=== PATIENT | male | born 1990 | race Caucasian/White ===

== ENCOUNTER 2016-12-24 14:38 | Emergency (ER) | payer SELFPAY ==
[2016-12-24] MEDS ORDERED: ASPIRIN 325 MG TABLET PO ONE (15:03)
--- NOTE | 2016-12-24 15:09 | ER Document Report ---
ED Medical Screen (RME) - General Chief Complaint: Chest Pain Stated Complaint: CHEST PAIN Time Seen by Provider: 12/24/16 15:03 Mode of Arrival: Ambulatory Information source: Patient TRAVEL OUTSIDE OF THE [place] IN LAST 30 DAYS: No - HPI Patient complains to provider of: CP Onset: Other - Pt with onset of SSCP 2 days ago with exacerbation last night. Has h/o anxiety/depression. - Related Data Allergies/Adverse Reactions: ibuprofen [From Motrin] Allergy (Verified 12/24/16 14:56) Past Medical History - Social History Chew tobacco use (# tins/day): Yes - 1/4-1/2 can per day Frequency of alcohol use: Rare Drug Abuse: None Renal/ Medical History: Denies: Hx Peritoneal Dialysis Psychiatric Medical History: Reports: Hx Depression Infectious Medical History: Reports: Hx MRSA - Immunizations Hx Diphtheria, Pertussis, Tetanus Vaccination: Yes Physical Exam - Vital signs Vitals: Temp Pulse Resp BP Pulse Ox 98 F 78 18 114/77 98 12/24/16 14:48 12/24/16 14:48 12/24/16 14:48 12/24/16 14:48 12/24/16 14:48 Course - Vital Signs Vital signs: Temp Pulse Resp BP Pulse Ox 98 F 78 18 114/77 98 12/24/16 14:48 12/24/16 14:48 12/24/16 14:48 12/24/16 14:48 12/24/16 14:48
[2016-12-24 15:34] LABS: ABSOLUTE EOSINOPHILS # (AUTO) 0.1 10^3/uL (0.0-0.6); ABSOLUTE LYMPHOCYTES (AUTO) 1.8 10^3/uL (0.5-4.7); ABSOLUTE MONOCYTES (AUTO) 0.5 10^3/uL (0.1-1.4); ABSOLUTE NEUT (AUTO) 5.4 10^3/uL (1.7-8.2); BASOPHILS % (AUTO) 0.5 % (0-2); EOSINOPHILS % (AUTO) 1.3 % (0-6); HEMATOCRIT 48.2 % (37.9-51.0); HEMOGLOBIN 16.3 g/dL (13.5-17.0); HGB HCT DIFFERENCE 0.7; LYMPHOCYTES % (AUTO) 23.2 % (13-45); MEAN CORPUSCULAR HEMOGLOBIN 31.9 pg (27.0-33.4); MEAN CORPUSCULAR HGB CONC 33.9 g/dL (32.0-36.0); MEAN CORPUSCULAR VOLUME 94 fl (80-97); MONOCYTES % (AUTO) 5.9 % (3-13); RED BLOOD COUNT 5.13 10^6/uL (4.35-5.55); RED CELL DISTRIBUTION WIDTH 13.3 % (11.5-14.0); SEGMENTED NEUTROPHILS % (AUTO) 69.1 % (42-78); WHITE BLOOD COUNT 7.8 10^3/uL (4.0-10.5)
--- NOTE | 2016-12-24 15:35 | RADIOLOGY REPORT (SQ) ---
EXAM DESCRIPTION: CHEST PA/LAT COMPLETED DATE/TIME: 12/24/2016 3:24 pm REASON FOR STUDY: CP COMPARISON: None. EXAM PARAMETERS: NUMBER OF VIEWS: two views TECHNIQUE: Digital Frontal and Lateral radiographic views of the chest acquired. RADIATION DOSE: NA LIMITATIONS: none FINDINGS: LUNGS AND PLEURA: No opacities, masses or pneumothorax. No pleural effusion. MEDIASTINUM AND HILAR STRUCTURES: No masses or contour abnormalities. HEART AND VASCULAR STRUCTURES: Heart normal size. No evidence for failure. BONES: No acute findings. HARDWARE: None in the chest. OTHER: No other significant finding. IMPRESSION: NO SIGNIFICANT RADIOGRAPHIC FINDING IN THE CHEST. TECHNICAL DOCUMENTATION: JOB ID: [id number] [email or web address]- All Rights Reserved
--- NOTE | 2016-12-24 15:37 | ER Document Report ---
ED Cardiac - General Chief Complaint: Chest Pain Stated Complaint: CHEST PAIN Time Seen by Provider: 12/24/16 15:03 Mode of Arrival: Ambulatory Notes: The patient is a 26-year-old male, past medical history anxiety, panic attacks, presents with 2 days of left lateral chest pain that started at rest. He said the pain is worse when he moves his shoulders. He does not remember any heavy lifting. Had a similar episode in 2014 while in senior living where EMS came and said that his EKG was normal. He refused transport at that time. Denies shortness of breath, leg swelling, hemoptysis, fevers, back pain, numbness, tingling, nausea, vomiting or abdominal pain. TRAVEL OUTSIDE OF THE [place] IN LAST 30 DAYS: No - Related Data Allergies/Adverse Reactions: ibuprofen [From Motrin] Allergy (Verified 12/24/16 14:56) Past Medical History - General Information source: Patient - Social History Smoking Status: Current Every Day Smoker - Dip Chew tobacco use (# tins/day): Yes - 1/4-1/2 can per day Frequency of alcohol use: Rare Drug Abuse: None Family History: Reviewed & Not Pertinent Patient has suicidal ideation: No Patient has homicidal ideation: No Renal/ Medical History: Denies: Hx Peritoneal Dialysis Psychiatric Medical History: Reports: Hx Depression Infectious Medical History: Reports: Hx MRSA - Immunizations Hx Diphtheria, Pertussis, Tetanus Vaccination: Yes Review of Systems - Review of Systems Notes: REVIEW OF SYSTEMS: CONSTITUTIONAL: -fevers, -chills EENT: -eye pain, -difficulty swallowing, -nasal congestion CARDIOVASCULAR: +chest pain, -syncope. RESPIRATORY: -cough, -SOB GASTROINTESTINAL: -abdominal pain, -nausea, -vomiting, -diarrhea GENITOURINARY: -dysuria, -hematuria MUSCULOSKELETAL: -back pain, -neck pain SKIN: -rash or skin lesions. HEMATOLOGIC: -easy bruising or bleeding. LYMPHATIC: -swollen, enlarged glands. NEUROLOGICAL: -altered mental status or loss of consciousness, -headache, - neurologic symptoms PSYCHIATRIC: -anxiety, -depression. ALL OTHER SYSTEMS REVIEWED AND NEGATIVE. Physical Exam - Vital signs Vitals: Temp Pulse Resp BP Pulse Ox 98 F 78 18 114/77 98 12/24/16 14:48 12/24/16 14:48 12/24/16 14:48 12/24/16 14:48 12/24/16 14:48 - Notes Notes: PHYSICAL EXAMINATION: GENERAL: Well-appearing, well-nourished and in no acute distress. HEAD: Atraumatic, normocephalic. EYES: Pupils equal round and reactive to light, extraocular movements intact, sclera anicteric, conjunctiva are normal. ENT: nares patent, oropharynx clear without exudates. Moist mucous membranes. NECK: Normal range of motion, supple without lymphadenopathy LUNGS: Breath sounds clear to auscultation bilaterally and equal. No wheezes rales or rhonchi. HEART: Regular rate and rhythm without murmurs ABDOMEN: Soft, nontender, normoactive bowel sounds. No guarding, no rebound. No masses appreciated. EXTREMITIES: Normal range of motion, no pitting or edema. No cyanosis. NEUROLOGICAL: Cranial nerves grossly intact. Normal speech, normal gait. Normal sensory and motor exams. PSYCH: Normal mood, normal affect. SKIN: Warm, Dry, normal turgor, no rashes or lesions noted. Course - Re-evaluation Re-evalutation: Patient appears well. EKG, chest x-ray and labs are all unremarkable. His HEART score is 1 (risk factors) and he is PERC negative. Will discharge patient home with follow-up at his primary care physician for further evaluation and treatment. - Vital Signs Vital signs: Temp Pulse Resp BP Pulse Ox 98 F 78 18 114/77 98 12/24/16 14:48 12/24/16 14:48 12/24/16 14:48 12/24/16 14:48 12/24/16 14:48 - Diagnostic Test Radiology reviewed: Image reviewed, Reports reviewed Radiology results interpreted by me: CXR: NAD - EKG Interpretation by Mo EKG shows normal: Sinus rhythm, [place], Intervals, QRS Complexes, ST-T Waves Rate: Normal Discharge - Discharge Clinical Impression: Chest pain Qualifiers: Chest pain type: unspecified Qualified Code(s): R07.9 - Chest pain, unspecified Condition: Stable Disposition: HOME, SELF-CARE Additional Instructions: CHEST PAIN OF UNCLEAR CAUSE: The exact cause of your chest pain isn't clear. Fortunately, there is no evidence of a dangerous medical condition. Further testing may be required to find the source of the pain. Most often, we find that this pain is coming from the chest wall -- the muscles or rib joints in the chest. But chest pain can come from the lung and lung lining, the esophagus, the heart valves or heart lining, and even the stomach or gallbladder. Rest. Eat lightly until the pain is gone. We may prescribe medicine for pain and inflammation. You should call the physician immediately if the pain radiates to the shoulder, jaw or arms; if you start to run a fever or develop a cough; or if you develop shortness of breath, or other new or alarming symptoms. NORMAL EXAM AND WORKUP: At this time, your examination and workup show no significant abnormality. No significant abnormal physical findings were noted. All laboratory, EKG, and imaging (x-ray, CT scans, ultrasound) studies that were ordered show no significant abnormality. Although your examination and all studies that were ordered showed no significant abnormal finding, there are no examinations and no studies that are 100% accurate. There is always the possibility that some abnormality could exist and not be detected with physical examination or within the limits and capabilities of laboratory and other studies. You should return or follow up as you were instructed on your visit today for further evaluation if your symptoms do not resolve. CHEST WALL PAIN: Your chest pain may be coming from the chest wall. This is often caused by straining the muscles or joints in the chest during physical activity, direct trauma, coughing, or vigorous vomiting. Persons with arthritis are especially prone to this type of pain, due to inflammation of the cartilage joints near the breast bone. Occasionally, no cause can be found. Rest from strenuous physical activity. This kind of chest pain is usually made worse by movement of the chest. Depending on the symptoms, we may prescribe medicine for pain, muscle relaxation, and antiinflammatory effects. If the pain is new, and seems to be due to muscle strain, cold packs can help. Otherwise, apply gentle warmth to the painful area for 15 minutes every hour or two. You should call contact the doctor immediately if things change. Further evaluation is needed if you develop a fever or cough, if the nature of the pain changes, or if you become short of breath. FOLLOW-UP CARE: If you have been referred to a physician for follow-up care, call the physician s office for an appointment as you were instructed or within the next two days. If you experience worsening or a significant change in your symptoms, notify the physician immediately or return to the Emergency Department at any time for re-evaluation. Referrals: JOSSIE WHITE MD [ACTIVE STAFF] - Follow up as needed
[2016-12-24 15:48] LABS: ALANINE AMINOTRANSFERASE 27 U/L (21-72); ALBUMIN 4.2 g/dL (3.5-5.0); ALKALINE PHOSPHATASE 74 U/L (38-126); ANION GAP 9 (5-19); ASPARTATE AMINO TRANSFERASE 20 U/L (17-59); BILIRUBIN,DIRECT 0.3 mg/dL (0.0-0.4); BILIRUBIN,TOTAL 0.7 mg/dL (0.2-1.3); BLOOD UREA NITROGEN 13 mg/dL (7-20); CALCIUM 9.6 mg/dL (8.4-10.2); CARBON DIOXIDE 27 mmol/L (22-30); CHLORIDE 106 mmol/L (98-107); CREATINE KINASE 102 U/L (55-170); GLUCOSE 83 mg/dL (75-110); POTASSIUM 4.8 mmol/L (3.6-5.0); SODIUM 141.5 mmol/L (137-145); TOTAL PROTEIN 6.6 g/dL (6.3-8.2)
[2016-12-24 16:00] LABS: CREATINE KINASE MB 0.77 ng/mL (<4.55); TROPONIN I < 0.012 ng/mL
[2016-12-24 18:00] VITALS: BP 108/64
--- NOTE | 2016-12-24 20:22 | EKG REPORT ---
SEVERITY:- NORMAL ECG - SINUS RHYTHM : Confirmed by: Geo Urbina MD 24-Dec-2016 20:22:21
== END 2016-12-24 17:59 | disposition home or self-care (01) ==
LOC: ER 14:38
DX: R07.9 Chest pain, unspecified (principal); F17.290 Nicotine dependence, other tobacco product, uncomplicated; Z86.14 Personal history of Methicillin resistant Staphylococcus aureus infection
CPT/HCPCS: 36415; 71020; 80053; 82550; 82553; 84484; 85025; 93005; 93010; 99285

== ENCOUNTER 2017-05-25 15:02 | Emergency (ER) | payer SELFPAY ==
[2017-05-25] MEDS ORDERED: TRAMADOL HCL 50 MG TABLET PO STA (15:48)
--- NOTE | 2017-05-25 15:49 | ER Document Report ---
ED Medical Screen (RME) - General Chief Complaint: Breathing Difficulty Stated Complaint: BREATHING ISSUES Time Seen by Provider: 05/25/17 15:48 Mode of Arrival: Ambulatory Information source: Patient Notes: Patient states that he has low back pain from a injury that occurred [facility]. He states this was in 2013. He says occasional flareup. He states currently is so bad is taking his breath away. He denies any problems with urination or bowel movements. Patient also states that he has been having some problems with mental health would like to speak with a counselor. TRAVEL OUTSIDE OF THE [place] IN LAST 30 DAYS: No - Related Data Allergies/Adverse Reactions: ibuprofen [From Motrin] Allergy (Verified 05/25/17 15:30) Home Medications: Current Home Medications No Home Medications 05/25/17 [History] Past Medical History - Social History Chew tobacco use (# tins/day): Yes - dip Frequency of alcohol use: Social Drug Abuse: None Renal/ Medical History: Denies: Hx Peritoneal Dialysis Psychiatric Medical History: Reports: Hx Depression Infectious Medical History: Reports: Hx MRSA - Immunizations Hx Diphtheria, Pertussis, Tetanus Vaccination: Yes Physical Exam - Vital signs Vitals: Temp Pulse Resp BP Pulse Ox 97.8 F 81 18 120/64 100 05/25/17 15:08 05/25/17 15:08 05/25/17 15:08 05/25/17 15:08 05/25/17 15:08 Course - Vital Signs Vital signs: Temp Pulse Resp BP Pulse Ox 97.8 F 81 18 120/64 100 05/25/17 15:08 05/25/17 15:08 05/25/17 15:08 05/25/17 15:08 05/25/17 15:08
[2017-05-25 16:19] LABS: APPEARANCE,URINE CLEAR; BILIRUBIN,URINE NEGATIVE (NEGATIVE); GLUCOSE, URINE NEGATIVE (NEGATIVE); KETONES,URINE NEGATIVE (NEGATIVE); LEUKOCYTE ESTERASE,URINE NEGATIVE (NEGATIVE); NITRITE,URINE NEGATIVE (NEGATIVE); PROTEIN,URINE NEGATIVE (NEGATIVE); URINE SPECIFIC GRAVITY 1.006; UROBILINOGEN,URINE NEGATIVE mg/dL (<2.0)
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
--- NOTE | 2017-05-25 17:38 | RADIOLOGY REPORT (SQ) ---
EXAM DESCRIPTION: L SPINE WHOLE COMPLETED DATE/TIME: 05/25/2017 5:24 pm REASON FOR STUDY: Pain, prior trauma COMPARISON: None. NUMBER OF VIEWS: Five views including obliques. TECHNIQUE: AP, lateral, oblique, and sacral radiographic images acquired of the lumbar spine. LIMITATIONS: None. FINDINGS: MINERALIZATION: Normal. SEGMENTATION: Normal. No transitional anatomy. ALIGNMENT: Normal. VERTEBRAE: Maintained height. No fracture or worrisome bone lesion. DISCS: Preserved height. No significant osteophytes or end plate irregularity. POSTERIOR ELEMENTS: Pedicles and facets are intact. No pars defect or posterior arch defects. HARDWARE: None in the spine. PARASPINAL SOFT TISSUES: Normal. PELVIS: Intact as visualized. No fractures or worrisome bone lesions. SI joints intact. OTHER: Possible small renal calculi on the right, measuring 2 and 3 mm, visualized on the AP view. IMPRESSION: NORMAL 5 VIEW LUMBAR SPINE. POSSIBLE RIGHT RENAL CALCULI. TECHNICAL DOCUMENTATION: JOB ID: [id number] [email or web address]- All Rights Reserved
[2017-05-25] MEDS ORDERED: CYCLOBENZAPRINE HCL 10 MG TABLET PO ONE (17:47)
[2017-05-25 18:13] VITALS: BP 126/80
--- NOTE | 2017-05-26 21:13 | PSYCHOLOGICAL NOTE ---
Psych Note - Psych Note Psych Note: Patient is a 27 year old male who presented to the ED this evening via [facility] for medical issued of breathing difficulty and back problems. He identified while he was in the ED he figured he would reach out to see if the Behavioral Health team could hlep him get an outpatient appointment. He stated he has been calling [facility] to arrange appointment but he never speaks to an actual person and they never return his call. He stated he wants to get back on medication. He noted he lost his Medicaid but is in the process of getting it re -established. He stated he also filed for disability and has an SSI hearing in July 2017. He reported he has services through [employer] for housing for disabled and his case manager is Ledy Lopez. He identified he had been going to [facility] for outpatient care but then they closed down the outpatient office in March. he noted he had gotten back on Effexor in August 2016 at [facility], it made him feel sick even though it had been effective in the past, he tried to tell [facility] but they would not listen. He identified he and rolly are expecting a baby boy and he wants to get on track before the baby is born and he promised his fiance he would get back into treatment. He denied SI/HI. He denied Alcohol and drug use. Patient was alert and oriented to person, place, time and situation. Mood was euthymic with congruent affect. He denied SI/HI and these were not presenting concerns. He did not appear to be responding to internal stimuli AEB fair eye contact and ability to carry on dialogue conversation. Thought processes were linear and organized. Conversational speech was WNL for rate, tone and prosody. Intellectual abilities are estimated to be average. Insight, judgment and impulse control were fair AEB seeking help obtaining outpatient appointment since he was already in the ED for medical issues and had no return calls from [facility]. Patient's fiance, Elisabeth, was present. She stated patient has sleep deprivation. She noted he is up 4 days at a time and then crashes for 1-24 hours straight. She also stated he has had a loss of appetite to the extent he went from 145 to 123 pounds in 1.5 months. Patient stated he was back up to 130 pounds now. Diagnosis: 311 (F32.9) Unspecified Depressive Disorder by History Impression/Plan: Patient is psychiatrically cleared. SI/HI and psychosis were never a presenting concern. He denied SI/HI and there was no observed psychosis. He was wanting to get an appointment for outpatient services. The customer retention representative for [facility] was out of the office by the time [facility] Behavioral Health team called. Will call in the morning to arrange appointment. Obtained a good call back number from patient so he could be made aware of appointment date and time. Patient provided with outpatient resource sheet. Consulted with Dr. Velásquez regarding the management and care of patient. ED Physician in agreement with recommendation.
== END 2017-05-25 18:13 | disposition home or self-care (01) ==
LOC: ER 15:02
DX: M54.5 Low back pain (principal); G89.29 Other chronic pain; F17.200 Nicotine dependence, unspecified, uncomplicated; F32.9 Major depressive disorder, single episode, unspecified
CPT/HCPCS: 72110; 81001; 99284

== ENCOUNTER 2017-11-23 04:59 | Emergency (ER) | payer MEDICAID ==
[2017-11-23 05:46] LABS: ABSOLUTE EOSINOPHILS # (AUTO) 0.1 10^3/uL (0.0-0.6); ABSOLUTE LYMPHOCYTES (AUTO) 2.1 10^3/uL (0.5-4.7); ABSOLUTE MONOCYTES (AUTO) 0.5 10^3/uL (0.1-1.4); ABSOLUTE NEUT (AUTO) 4.1 10^3/uL (1.7-8.2); BASOPHILS % (AUTO) 0.7 % (0-2); EOSINOPHILS % (AUTO) 1.4 % (0-6); HEMATOCRIT 41.9 % (37.9-51.0); HEMOGLOBIN 14.7 g/dL (13.5-17.0); LYMPHOCYTES % (AUTO) 30.6 % (13-45); MEAN CORPUSCULAR HEMOGLOBIN 32.4 pg (27.0-33.4); MEAN CORPUSCULAR HGB CONC 35.1 g/dL (32.0-36.0); MEAN CORPUSCULAR VOLUME 92 fl (80-97); MONOCYTES % (AUTO) 6.9 % (3-13); PLATELET COUNT 256 10^3/uL (150-450); RED BLOOD COUNT 4.54 10^6/uL (4.35-5.55); SEGMENTED NEUTROPHILS % (AUTO) 60.4 % (42-78); TOTAL CELLS COUNTED % (AUTO) 100 %; WHITE BLOOD COUNT 6.7 10^3/uL (4.0-10.5)
[2017-11-23 05:57] LABS: APPEARANCE,URINE CLEAR; BILIRUBIN,URINE NEGATIVE (NEGATIVE); COLOR,URINE YELLOW; GLUCOSE, URINE NEGATIVE (NEGATIVE); KETONES,URINE TRACE mg/dL (NEGATIVE); LEUKOCYTE ESTERASE,URINE NEGATIVE (NEGATIVE); NITRITE,URINE NEGATIVE (NEGATIVE); PROTEIN,URINE NEGATIVE (NEGATIVE)
[2017-11-23 06:10] LABS: URINE AMPHETAMINES SCREEN NEGATIVE; URINE BARBITURATES SCREEN NEGATIVE; URINE BENZODIAZEPINES SCREEN NEGATIVE; URINE COCAINE SCREEN NEGATIVE; URINE MARIJUANA (THC) SCREEN NEGATIVE; URINE METHADONE SCREEN NEGATIVE; URINE PHENCYCLIDINE SCREEN NEGATIVE
[2017-11-23 06:24] LABS: ALANINE AMINOTRANSFERASE 21 U/L (21-72); ALBUMIN 3.3 g/dL (3.5-5.0); ALKALINE PHOSPHATASE 53 U/L (38-126); ANION GAP 10 (5-19); ASPARTATE AMINO TRANSFERASE 20 U/L (17-59); BILIRUBIN,DIRECT 0.2 mg/dL (0.0-0.4); BILIRUBIN,TOTAL 0.3 mg/dL (0.2-1.3); BLOOD UREA NITROGEN 15 mg/dL (7-20); CALCIUM 9.2 mg/dL (8.4-10.2); CARBON DIOXIDE 28 mmol/L (22-30); CHLORIDE 105 mmol/L (98-107); GLUCOSE 89 mg/dL (75-110); POTASSIUM 3.9 mmol/L (3.6-5.0); SODIUM 142.8 mmol/L (137-145); TOTAL PROTEIN 5.3 g/dL (6.3-8.2)
[2017-11-23 06:25] LABS: ACETAMINOPHEN < 10 ug/mL (10-30); ALCOHOL < 10 mg/dL (NONE DETECTED); SALICYLATE < 1.0 mg/dL (2.0-20.0)
--- NOTE | 2017-11-23 07:54 | ER Document Report ---
ED General <PAWAN GALAN - Last Filed: 11/23/17 09:09> - General Mode of Arrival: Ambulatory Information source: Patient TRAVEL OUTSIDE OF THE [place] IN LAST 30 DAYS: No - HPI Onset: Other Onset/Duration: Gradual Quality of pain: No pain Associated symptoms: None Exacerbated by: Denies Relieved by: Denies Similar symptoms previously: Yes Recently seen / treated by doctor: No <MARELY RASHID - Last Filed: 11/23/17 21:08> - General Chief Complaint: Anxiety Stated Complaint: ANXIETY Time Seen by Provider: 11/23/17 06:03 Notes: 27-year-old male with depression, anxiety and PTSD presents with suicidal thoughts. Patient admits to recent increased stress with the of his first child 6 months ago. He states that he has had increased stress in his relationship with his fiance. He admits to not being on his medication for over a year. He states he supposed to be on Effexor and Ativan. He denies any plan. He denies homicidal ideation, visual and auditory hallucinations. [facility] but states that he does not think he can make it until Tuesday. Does not have access to firearms. He has no physical complaints at this time. (MARELY RASHID) - Related Data Allergies/Adverse Reactions: ibuprofen [From Motrin] Allergy (Verified 11/23/17 05:16) Past Medical History - General Information source: Patient, [facility] Records - Social History Smoking Status: Current Every Day Smoker Cigarette use (# per day): Yes - 5 Smoking Education Provided: Yes - Patient counselled regarding cessation for 4 minutes Frequency of alcohol use: Occasional Drug Abuse: None Lives with: Family Family History: Reviewed & Not Pertinent Patient has suicidal ideation: No Patient has homicidal ideation: No Renal/ Medical History: Denies: Hx Peritoneal Dialysis Psychiatric Medical History: Reports: Hx Depression Infectious Medical History: Reports: Hx MRSA - Immunizations Hx Diphtheria, Pertussis, Tetanus Vaccination: Yes <MARELY RASHID - Last Filed: 11/23/17 21:08> Review of Systems <PAWAN GALAN - Last Filed: 11/23/17 09:09> <MARELY RASHID - Last Filed: 11/23/17 21:08> - Review of Systems Notes: REVIEW OF SYSTEMS: CONSTITUTIONAL : Denies fever, chills, or sweats. Denies recent illness. Denies weight loss, recent hospitalizations. EENT: Denies visula changes, eye pain. Denies nasal or sinus congestion or discharge. Denies sore throat, oral lesions, difficulty swallowing. CARDIOVASCULAR: Denies chest pain. Denies palpitations or racing or irregular heart beat. Denies lower extremity edema. RESPIRATORY: Denies cough, cold, or chest congestion. Denies shortness of breath, difficulty breathing, or wheezing. GASTROINTESTINAL: Denies abdominal pain or distention. Denies nausea, vomiting , or diarrhea. Denies blood in vomitus, stools, or per rectum. Denies black, tarry stools. Denies constipation. GENITOURINARY: Denies difficulty urinating, painful urination, burning, frequency, blood in urine, or vaginal discharge. MUSCULOSKELETAL: Denies back or neck pain or stiffness. Denies joint pain or swelling. SKIN: Denies rash, lesions or sores. HEMATOLOGIC : Denies easy bruising or bleeding. LYMPHATIC: Denies swollen, enlarged glands. NEUROLOGICAL: Denies confusion or altered mental status. Denies passing out or loss of consciousness. Denies dizziness or lightheadedness. Denies headache. Denies weakness or paralysis or loss of use of either side. Denies problems with gait or speech. Denies sensory loss, numbness, or tingling. Denies seizures. PSYCHIATRIC: Denies homicidal ideation. (MARELY RASHID) Physical Exam <PAWAN GALAN - Last Filed: 11/23/17 09:09> <MARELY RASHID - Last Filed: 11/23/17 21:08> - Vital signs Vitals: Temp Pulse BP Pulse Ox 97.6 F 66 121/72 99 11/23/17 05:10 11/23/17 05:10 11/23/17 05:10 11/23/17 05:10 - Notes Notes: PHYSICAL EXAMINATION: GENERAL: Well-appearing, well-nourished and in no acute distress. HEAD: Atraumatic, normocephalic. EYES: Pupils equal round and reactive to light, extraocular movements intact, sclera anicteric, conjunctiva are normal. ENT: Nares patent, oropharynx clear without exudates. Moist mucous membranes. NECK: Normal range of motion, supple without lymphadenopathy LUNGS: Breath sounds clear to auscultation bilaterally and equal. No wheezes rales or rhonchi. HEART: Regular rate and rhythm without murmurs ABDOMEN: Soft, nontender, nondistended abdomen. No guarding, no rebound. No masses appreciated. Musculoskeletal: Normal range of motion, no pitting or edema. No cyanosis. NEUROLOGICAL: Cranial nerves grossly intact. Normal speech, normal gait. Normal sensory, motor exams PSYCH: Positive SI, negative HI. SKIN: Warm, Dry, normal turgor, no rashes or lesions noted. (MARELY RASHID) Course - Laboratory Result Diagrams: 11/23/17 05:30 11/23/17 05:30 <PAWAN GALAN - Last Filed: 11/23/17 09:09> - Laboratory Result Diagrams: 11/23/17 05:30 11/23/17 05:30 <MARELY RASHID - Last Filed: 11/23/17 21:08> - Re-evaluation Re-evalutation: 11/23/17 07:53 Laboratory 11/23/17 11/23/17 11/23/17 05:30 05:30 05:30 WBC 6.7 RBC 4.54 Hgb 14.7 Hct 41.9 MCV 92 MCH 32.4 MCHC 35.1 RDW 13.0 Plt Count 256 Seg Neutrophils % 60.4 Lymphocytes % 30.6 Monocytes % 6.9 Eosinophils % 1.4 Basophils % 0.7 Absolute Neutrophils 4.1 Absolute Lymphocytes 2.1 Absolute Monocytes 0.5 Absolute Eosinophils 0.1 Absolute Basophils 0.0 Sodium 142.8 Potassium 3.9 Chloride 105 Carbon Dioxide 28 Anion Gap 10 BUN 15 Creatinine 0.97 Est GFR ( Amer) > 60 Est GFR (Non-Af Amer) > 60 Glucose 89 Calcium 9.2 Total Bilirubin 0.3 Direct Bilirubin 0.2 Neonat Total Bilirubin Not Reportable Neonat Direct Bilirubin Not Reportable Neonat Indirect Bili Not Reportable AST 20 ALT 21 Alkaline Phosphatase 53 Total Protein 5.3 L Albumin 3.3 L Urine Color YELLOW Urine Appearance CLEAR Urine pH 5.0 Ur Specific [place] 1.030 Urine Protein NEGATIVE Urine Glucose (UA) NEGATIVE Urine Ketones TRACE H Urine Blood NEGATIVE Urine Nitrite NEGATIVE Urine Bilirubin NEGATIVE Urine Urobilinogen 4.0 H Ur Leukocyte Esterase NEGATIVE Urine WBC (Auto) 1 Urine RBC (Auto) 1 U Hyaline Cast (Auto) 1 Squamous Epi Cells Auto <1 Urine Mucus (Auto) MANY Urine Ascorbic Acid NEGATIVE Salicylates < 1.0 L Urine Opiates Screen Urine Methadone Screen Acetaminophen < 10 L Ur Barbiturates Screen Ur Phencyclidine Scrn Ur Amphetamines Screen U Benzodiazepines Scrn Urine Cocaine Screen U Marijuana (THC) Screen Serum Alcohol < 10 11/23/17 05:30 WBC RBC Hgb Hct MCV MCH MCHC RDW Plt Count Seg Neutrophils % Lymphocytes % Monocytes % Eosinophils % Basophils % Absolute Neutrophils Absolute Lymphocytes Absolute Monocytes Absolute Eosinophils Absolute Basophils Sodium Potassium Chloride Carbon Dioxide Anion Gap BUN Creatinine Est GFR ( Amer) Est GFR (Non-Af Amer) Glucose Calcium Total Bilirubin Direct Bilirubin Neonat Total Bilirubin Neonat Direct Bilirubin Neonat Indirect Bili AST ALT Alkaline Phosphatase Total Protein Albumin Urine Color Urine Appearance Urine pH Ur Specific [place] Urine Protein Urine Glucose (UA) Urine Ketones Urine Blood Urine Nitrite Urine Bilirubin Urine Urobilinogen Ur Leukocyte Esterase Urine WBC (Auto) Urine RBC (Auto) U Hyaline Cast (Auto) Squamous Epi Cells Auto Urine Mucus (Auto) Urine Ascorbic Acid Salicylates Urine Opiates Screen NEGATIVE Urine Methadone Screen NEGATIVE Acetaminophen Ur Barbiturates Screen NEGATIVE Ur Phencyclidine Scrn NEGATIVE Ur Amphetamines Screen NEGATIVE U Benzodiazepines Scrn NEGATIVE Urine Cocaine Screen NEGATIVE U Marijuana (THC) Screen NEGATIVE Serum Alcohol 11/23/17 07:53 27-year-old male with depression, anxiety and PTSD presents with suicidal thoughts. Patient admits to recent increased stress with the of his first child 6 months ago. He states that he has had increased stress in his relationship with his fiance. He admits to not being on his medication for over a year. He states he supposed to be on Effexor and Ativan. He denies any plan. He denies homicidal ideation, visual and auditory hallucinations. Patient does have an upcoming appointment at [facility] but states that he does not think he can make it until Tuesday. Does not have access to firearms. He has no physical complaints at this time. Vital signs stable upon arrival. Patient is afebrile, normotensive and not hypoxic. Patient does not appear toxic or dehydrated. He is in no acute distress. No significant laboratory findings. UDS negative. Patient cleared for psych evaluation. Psychiatry evaluated the patient, deemed unsafe for discharge and gave medication recommendations. 11/23/17 07:54 11/23/17 09:56 Patient evaluated by psychiatry deemed safe for discharge home. Discharge medications are Effexor 37.5 mg twice daily and BuSpar 10 mg twice daily prescriptions for these medications will be provided. 11/23/17 21:03 Received a call from the pharmacy who states that Effexor 37.5 mg twice daily is not covered by the patient's insurance. Further recommendations from psychiatry are to the patient today 37.5 mg daily and then increase to 75 mg daily. Patient does have an upcoming appointment with charmaine. Patient provided the opportunity to ask questions, and express concerns. Discharge instructions discussed. Patient is agreeable with discharge home. Return indications explained and discussed with the patient who displays understanding. Patient encouraged to return to the emergency department immediately with any concerns. (MARELY RASHID) - Vital Signs Vital signs: Temp Pulse Resp BP Pulse Ox 98.1 F 89 17 132/74 H 99 11/23/17 10:15 11/23/17 10:15 11/23/17 10:15 11/23/17 10:15 11/23/17 05:10 - Laboratory Laboratory results interpreted by me: 11/23/17 11/23/17 05:30 05:30 Total Protein 5.3 L Albumin 3.3 L Urine Ketones TRACE H Urine Urobilinogen 4.0 H Salicylates < 1.0 L Acetaminophen < 10 L Discharge <PAWAN GALAN - Last Filed: 11/23/17 09:09> <MARELY RASHID - Last Filed: 11/23/17 21:08> - Discharge Clinical Impression: PTSD (post-traumatic stress disorder) Bipolar disorder, unspecified Qualifiers: Active/Remission status: currently active Current bipolar episode type: hypomanic Qualified Code(s): F31.0 - Bipolar disorder, current episode hypomanic Condition: Stable Disposition: HOME, SELF-CARE Instructions: Anxiety ([facility]) Additional Instructions: DEPRESSION: Your evaluation reveals that you have mental depression. While symptoms may be vague, they often include disturbance of sleep, fatigue, loss of appetite , and general loss of interest in life. While depression may be a side effect of drugs, or a reaction to a major change in your life, many cases have no known cause. If depression is acute, and related to a major loss in your life, you can expect it to clear completely with time. If you have been depressed a long time , are prone to repeated bouts of depression or low mood, or have been thinking of suicide, get help. Depression can be treated with anti-depressant medication and counselling. Long-term depression will often take a few weeks to clear, even with appropriate medication. Follow-up care is important. SUICIDAL IDEATION: Suicidal ideation is a common medical term for thoughts about suicide, which may be as detailed as a formulated plan, without the suicidal act itself. Although most people who undergo suicidal ideation do not commit suicide, some go on to make suicide attempts. The range of suicidal ideation varies greatly from fleeting to detailed planning, role playing, and unsuccessful attempts. While thoughts about suicide are common, most people do not carry out serious actions to commit suicide. Based upon your evaluation and discussion with you, we do not believe you are currently at risk to act upon your thoughts of suicide. You have agreed to return to the Emergency Department, at any time , if you feel inclined to act upon your suicidal thoughts. FOLLOW-UP CARE: Please follow up with your outpatient mental health provider, Charmaine stevens PA, at your previously scheduled appointment 11/29/2017. If you experience worsening or a significant change in your symptoms, notify the physician immediately or return to the Emergency Department at any time for re-evaluation. Prescriptions: Buspirone HCl [Buspar 10 mg Tablet] 10 mg PO BID #60 tablet Venlafaxine HCl ER [Effexor Xr 37.5 mg Cap.sr] 37.5 mg PO BID #60 cap.sr.[id number] Referrals: Charmaine Marshall PA [Provider Group] - 11/29/17
--- NOTE | 2017-11-23 09:49 | PSYCHOLOGICAL NOTE ---
Psych Note - Psych Note Psych Note: Reason for Consult: Anxiety, medication recommendations Pt c/o "not feeling well mentally". Pt reports he has an appt on 11/29 but does not feel he can wait until then. Pt has not been taking meds x1 year. Awake and alert. Skin w/d. Resp e/u. NAD noted. Calm and cooperative at this time. Patient disclosed he came to [facility] via EMS because he "feel like an emotional mess." He disclosed increased anxiety due to new baby in the home. He states that he has been off medications for approximately one half years and needs to get back on them. Patient states he has an appointment September 29 with [facility] for his first medication management appointment; patient has had "a couple" therapeutic appointments already. Patient disclosed he has no thoughts of suicidal ideation or homicidal ideation. He admits to previous inpatient psychiatric treatment at [facility] in [place]. He disclosed he has had 3 suicide attempts in the past the last being in 2011. Patient disclosed that there is a family history of bipolar but he has been diagnosed with PTSD, anxiety, and depression. He has been on Effexor in the past that has worked. Patient is alert and orientated to person, place, time and circumstance. Mood is euthymic with congruent affect as evidenced by openly engaging with clinician smiling and laughing. Patient denies suicidal and homicidal ideation. Delusions are absent behaviors congruent with intact reality based presentation i.e. organized and linear thought process. Eye contact is well- maintained. Conversational speech was within normal rate, tone and prosody. Intellectual abilities appear to be within average range. Attention and concentration are good. Insight, judgment, impulse control are currently good. Medication recommendations per [facility]'s contracted psychiatrist Dr. Ginny MEEK are as follows 1. Effexor 37.5mg twice daily for depression 2. Buspar 10mg twice daily for anxiety Diagnosis 311 (F32.9) unspecified depressive disorder per history provided by patient 300.00 (F41.9) unspecified anxiety disorder per history provided by patient 309.81 (F43.10) posttraumatic stress disorder per history provided by patient R/O 296.80 (F31.9) unspecified bipolar and related disorder Impression\\plan: Patient is cleared from acute psychiatric services. Patient does not meet IVC criteria per [place] GS 122C. Patient reports increased anxiety since his baby was born approximately 6 months ago. Patient states he already has had some therapeutic sessions with [facility]; however, his medication management appointment is not until the th is requesting assistance. Medication recommendations have been provided. Dr. Velásquez was consulted and the care and management this patient; attending physician is agreement with recommendations and disposition.
[2017-11-23 10:16] VITALS: BP 132/74
== END 2017-11-23 10:15 | disposition home or self-care (01) ==
LOC: ER 04:59
DX: F31.0 Bipolar disorder, current episode hypomanic (principal); F43.10 Post-traumatic stress disorder, unspecified; F41.9 Anxiety disorder, unspecified; F17.210 Nicotine dependence, cigarettes, uncomplicated
CPT/HCPCS: 36415; 80053; 80307; 81001; 85025; 99284; 99406

== ENCOUNTER 2018-02-01 01:13 | Emergency (ER) | payer MEDICAID, OTHER ==
[2018-02-01] MEDS ORDERED: DIPHENHYDRAMINE HCL 50 MG/ML VIAL IM ONE (03:01)
[2018-02-01] MEDS ORDERED: KETOROLAC TROMETHAMINE 60 MG/2 ML SDV IM ONE (03:01)
[2018-02-01] MEDS ORDERED: PROCHLORPERAZINE EDISYLATE INJ 10 MG/2 ML VIAL IM ONE (03:01)
--- NOTE | 2018-02-01 03:05 | ER Document Report ---
HPI - HPI Pain Level: 5 Notes: Patient is an otherwise healthy 27-year-old male who presents with chief complaint of headache since 10:30 PM. Patient reports he has a history of migraines and this feels similar. Patient reports that the headache had a progressive onset, is located right behind his right eye and has associated nausea. Patient reports that he usually takes ibuprofen or naproxen for his headaches. Patient states he did take 1 dose of naproxen approximately 1 hour prior to arrival, reports pain is down to a 3 out of 5. Patient denies any fevers Past Medical History - General Information source: Patient - Social History Smoking Status: Current Some Day Smoker Frequency of alcohol use: None Drug Abuse: None Family History: Reviewed & Not Pertinent Neurological Medical History: Reports: Hx Migraine Renal/ Medical History: Denies: Hx Peritoneal Dialysis Psychiatric Medical History: Reports: Hx Depression Infectious Medical History: Reports: Hx MRSA Surgical Hx: Negative - Immunizations Hx Diphtheria, Pertussis, Tetanus Vaccination: Yes Vertical Provider Document - CONSTITUTIONAL Notes: PHYSICAL EXAMINATION: GENERAL: Well-appearing, well-nourished and in no acute distress. HEAD: Atraumatic, normocephalic. EYES: Pupils equal round extraocular movements intact, conjunctiva are normal. ENT: Nares patent NECK: Normal range of motion LUNGS: No respiratory distress Musculoskeletal: Normal range of motion NEUROLOGICAL: Normal speech, normal gait. PSYCH: Normal mood, normal affect. SKIN: Warm, Dry, normal turgor, no rashes or lesions noted. - INFECTION CONTROL TRAVEL OUTSIDE OF THE [place] IN LAST 30 DAYS: No Course - Re-evaluation Re-evalutation: 02/01/18 03:04 Will order migraine cocktail for patient and reevaluate after medications given. 02/01/18 05:21 Patient reports complete resolution of his headache after administration of IM medications. Will discharge patient home. - Vital Signs Vital signs: Temp Pulse Resp BP Pulse Ox 98.0 F 82 16 116/67 97 02/01/18 01:41 02/01/18 01:41 02/01/18 01:41 02/01/18 01:41 02/01/18 01:41 Discharge - Discharge Clinical Impression: Migraine Qualifiers: Migraine type: other Status migrainosus presence: without status migrainosus Intractability: not intractable Qualified Code(s): G43.809 - Other migraine, not intractable, without status migrainosus Condition: Stable Disposition: HOME, SELF-CARE Additional Instructions: Migraine Headache The physician feels that your symptoms are due to a migraine attack. Migraines are caused by changes in the blood vessels of the head. Arteries go into spasm, often causing warning symptoms that a headache may begin soon. As the spasm goes away, the vessels dilate and throb, causing the pounding pain of a migraine headache. Migraines often cause nausea and vomiting. The treatment of headaches varies with severity and cause of pain. Not all headaches need pain shots -- in fact, there is evidence that using narcotics for headaches may make them worse in the long run. The physician will determine the therapy that's in your best interest for this particular headache. Medications are available that may prevent migraines, or stop them as they first occur. If one medication is not helpful, try another. If migraines are frequent, be patient -- follow the doctor's recommendations. Call the physician if you are worsening, or if new symptoms arise. Prescriptions: Butalb/Acetaminophen/Caffeine [Fioricet (50-325-40 mg) Tablet] 1 tab PO Q4HP PRN #30 tab PRN Reason:
[2018-02-01 06:00] VITALS: BP 105/57
== END 2018-02-01 06:00 | disposition home or self-care (01) ==
LOC: ER 01:13
DX: G43.809 Other migraine, not intractable, without status migrainosus (principal); F17.200 Nicotine dependence, unspecified, uncomplicated; Z86.14 Personal history of Methicillin resistant Staphylococcus aureus infection
CPT/HCPCS: 99284; 96372; J1200; J1885; J0780